=== PATIENT | male | born 1955 | race Caucasian/White ===

== ENCOUNTER 2022-09-04 20:06 | Emergency (ER) | payer OTHER ==
--- OUTSIDE RECORDS SUMMARY | 2022-09-04 20:15 | XMS REPORT | Continuity of Care Document ---
:1955 Author Organization [facility] t Address [address] [place] [address] [place] [id number] Care Team Providers Name Role Phone PCP, PATIENT DOES NOT HAVE A Primary Care Physician Unavaila ble Lab, Lcc Attending Clinician Unavailable Sara SALGADO, Fady Gonzalez Attending Clinician FADY RUIZ Attending Clinician Unavailable Payers Payer Name Policy Type Policy Number Effective Date Expiration Date S ource Problems Condition Condition Condition Status Onset Resolution Last Treating Co mments Source Name Details Category Date Date Treatment Clinician Date No known No known Disease Unive rs active active ity of problems problems [facility] Allergies, Adverse Reactions, Alerts Allergy Allergy Status Severity Reaction(s) Onset Inactive Treating Comm ents Source Name Type Date Date Clinician NO KNOWN Drug Active Univers ALLERGIE Class ity of S [facility] Social History Social Habit Start Date Stop Date Quantity Comments Source History of Passive smoker Flom of tobacco use [facility] Exposure to 2022-05-27 2022-06-06 Not sure [facility]-CoV-2 00:00:00 15:20:00 [facility] (event) [place] Tobacco use and 2022-06-06 2022-06-06 Smokeless tobacco Un iversity of exposure 00:00:00 00:00:00 non-user [facility] Sex Assigned At [birth year] Univers[facility] 00:00:00 00:00:00 [facility] Smoking Status Start Date Stop Date Source Never smoked tobacco [facility] Medications Ordered Filled Start Stop Current Ordering Indication Dosage Frequency Signature Comments Components Source Medication Medication Date Date Medication? Clinician (SIG) Name Name tamsulosin 2021-06 Yes [id number] .4mg Take 1 Univers (FLOMAX) 2 capsule by iti[place] o f 0.4 mg 24 00:[place] capsule 00 the [facility] morning. Branch tamsulosin 2021-06 Yes [id number] .4mg Take 1 Univers (FLOMAX) 2-07 07 capsule by ity o f 0.4 mg 24 00:[place] capsule 00 the [facility] morning. [facility] tamsulosin 2021-06 Yes [id number] .4mg Take 1 Univers (FLOMAX) 2-07 07 capsule by ity o f 0.4 mg 24 00:[place]: [place] capsule 00 the [facility] morning. [facility] tamsulosin 2021-06 Yes [id number] .4mg Take 1 Univers (FLOMAX) 2-07 07 capsule by ity o f 0.4 mg 24 00:[place] capsule 00 the [facility] morning. [facility] tamsulosin 2021-06 Yes [id number] .4mg Take 1 Univers (FLOMAX) 2-07 07 capsule by ity o f 0.4 mg 24 00:[place]: [place] capsule 00 the Medical morning. Branch tamsulosin 2021-06 Yes [id number] .4mg Take 1 Univers (FLOMAX) 2-07 07 capsule by ity o f 0.4 mg 24 00:00: [place] capsule 00 the Medical morning. Branch jan 20222022- Yes [id number] Apply to [facility] betamethaso 08-07 area(s) 2 it y of ne 00:00: 05:59 (two) [place] dipropionat 00 :00 times Medical e 0.05 % daily for Branch cream 30 days. jan 20222022- Yes [id number] Apply to [facility] betamethaso 08-07 area(s) 2 it y of ne 00:00: 05:59 (two) [place] dipropionat 00 :00 times Medical e 0.05 % daily for Branch cream 30 days. jan 20222022- Yes [id number] Apply to [facility] betamethaso 08-07 area(s) 2 it y of ne 00:00: 05:59 (two) [place] dipropionat 00 :00 times Medical e 0.05 % daily for Branch cream 30 days. jan 20222022- Yes [id number] Apply to [facility] betamethaso 08-07 area(s) 2 it y of ne 00:00: 05:59 (two) [place] dipropionat 00 :00 times Medical e 0.05 % daily for Branch cream 30 days. jan 20222022- Yes [id number] Apply to [facility] betamethaso 08-07 area(s) 2 it y of ne 00:00: 05:59 (two) [place] dipropionat 00 :00 times Medical e 0.05 % daily for Branch cream 30 days. jan 20222022- Yes [id number] Apply to [facility] betamethaso 08-07 area(s) 2 it y of ne 00:00: 05:59 (two) [place] dipropionat 00 :00 times Medical e 0.05 % daily for Branch cream 30 days. Vital Signs Vital Name Observation Time Observation Value Comments Source Systolic blood 2022-06-06 21:18:00 132 mm[Hg] Univer sity of pressure [facility] Diastolic blood 2022-06-06 21:18:00 89 mm[Hg] Unive rsity of pressure [facility] Heart rate 2022-06-06 21:18:00 86 /min [facility] acute hospital Body temperature 2022-06-06 21:18:00 36.78 [facility] Body height 2022-06-06 21:18:00 180.3 cm [facility] acute hospital Body weight 2022-06-06 21:18:00 98.521 kg [facility] acute hospital BMI 2022-06-06 21:18:00 30.29 kg/m2 General acute hospital Oxygen saturation in 2022-06-06 21:18:00 96 /min [facility] Arterial blood by [facility] Pulse oximetry Branch Procedures This patient has no known procedures. 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 [id number] [facility] 15:15:00 15:45:00 Visit Fady [facility] [id number] ity of CANCER [id number] [facility] - [id number] [facility] ical [facility] 204 Branch Results This patient has no known results.
[2022-09-04] MEDS ORDERED: ASPIRIN 81 MG CHEWABLE TABLET ONE (20:41)
[2022-09-04 21:07] LABS: Protime INR 1.14
[2022-09-04 21:09] LABS: Absolute Lymphocytes (CBC) 2.1 K/uL (0.7-4.9); Hematocrit 42.9 % (39.6-49.0); Lymphocytes % 30.3 % (15.3-44.8); MCV 95.6 fL (80-100); MPV 7.1 fL (7.6-11.3); RBC Red Blood Cell Count 4.49 M/uL (4.33-5.43)
[2022-09-04 21:21] LABS: Magnesium 2.3 mg/dL (1.6-2.4); Potassium 3.9 mEq/L (3.5-5.1); Troponin High Sensitivity 3.5 pg/mL (<58.9)
--- NOTE | 2022-09-04 21:23 | RAD REPORT ---
EXAM DESCRIPTION: Jennifer Single View09/04/2022 9:08 pm CLINICAL HISTORY: left arm pain COMPARISON: No comparisons TECHNIQUE: Portable AP view of the chest. FINDINGS: The lungs are clear.Left basilar atelectatic changes. No pneumothorax or effusion. The car diomediastinal contours are unremarkable. IMPRESSION: No acute cardiopulmonary process.
[2022-09-04] MEDS ORDERED: KETOROLAC 30 MG/ML INJ ONE (22:01)
[2022-09-05 00:57] LABS: Potassium 3.7 mEq/L (3.5-5.1)
--- NOTE | 2022-09-05 08:37 | ER ---
Nurse's Notes [facility] Name: Christophe Matias Age: 66 yrs Sex: Male : 1955 Arrival Date: 09/04/2022 Time: 20:08 Bed 4 Private MD: Diagnosis: Chest pain, unspecified;Shortness of breath Presentation: 09/04 20:15 Chief complaint: Patient states: SOB, back pain and left arm pain starting about 1 week lg3 ago but has gotten worse today. Coronavirus screen: Client denies travel out of the [place] in the last 14 days. At this time, the client does not indicate any symptoms associated with coronavirus-19. Ebola Screen: No symptoms or risks identified at this time. Initial Sepsis Screen: Does the patient meet any 2 criteria? No. Patient's initial sepsis screen is negative. Does the patient have a suspected source of infection? No. Patient's initial sepsis screen is negative. Risk Assessment: Do you want to hurt yourself or someone else? Patient reports no desire to harm self or others. Onset of symptoms is unknown. 20:15 Method Of Arrival: Ambulatory lg3 20:15 Acuity: GLORIA 3 lg3 Triage Assessment: 20:20 General: Appears in no apparent distress. comfortable, Behavior is calm, cooperative. lg3 Pain: Complains of pain in chest Pain radiates to left arm Pain currently is 2 out of 10 on a pain scale. EENT: No deficits noted. No signs and/or symptoms were reported regarding the EENT system. Neuro: No deficits noted. Funez Agitation-Sedation Scale (RASS): 0 - Alert and Calm Level of Consciousness is awake, alert, obeys commands, Oriented to person, place, time, situation. Cardiovascular: Reports chest pain, Capillary refill < 3 seconds Clubbing of nail beds is absent Patient's skin is warm and dry. Respiratory: No deficits noted. Reports shortness of breath. GI: No deficits noted. No signs and/or symptoms were reported involving the gastrointestinal system. : No deficits noted. No signs and/or symptoms were reported regarding the genitourinary system. Derm: No deficits noted. No signs and/or symptoms reported regarding the dermatologic system. Skin is intact, is healthy with good turgor, Skin is dry, Skin is normal, Skin temperature is warm. Musculoskeletal: No deficits noted. No signs and/or symptoms reported regarding the musculoskeletal system. Circulation, motion, and sensation intact. Range of motion: intact in all extremities. Historical: - Allergies: 20:20 No Known Allergies; lg3 - Home Meds: 20:20 None [Active]; lg3 - PMHx: 20:20 enlarged prostate; lg3 - PSHx: 20:20 None; lg3 - Immunization history:: Adult Immunizations up to date, Client reports receiving the 2nd dose of the Covid vaccine. - Social history:: Smoking status: Patient denies any tobacco usage or history of. Patient uses alcohol, occasionally. Screenin:06 Abuse screen: Denies threats or abuse. Denies injuries from another. Nutritional ha1 screening: No deficits noted. Tuberculosis screening: No symptoms or risk factors identified. Assessment: 20:27 General: Appears comfortable, Behavior is calm, cooperative. Pain: Complains of pain in ha1 left arm and chest. Neuro: Level of Consciousness is awake, alert, obeys commands, Oriented to person, place, time, situation. Cardiovascular: Capillary refill < 3 seconds Patient's skin is warm and dry. Rhythm is sinus rhythm. Respiratory: Airway is patent Respiratory effort is even, unlabored, Respiratory pattern is regular, symmetrical. Respiratory: Reports shortness of breath at rest. GI: No signs and/or symptoms were reported involving the gastrointestinal system. Abdomen is non-distended, obese. : No signs and/or symptoms were reported regarding the genitourinary system. 21:30 Reassessment: Patient and/or family updated on plan of care and expected duration. Pain ha1 level reassessed. Patient is alert, oriented x 3, equal unlabored respirations, skin warm/dry/pink. Patient states symptoms have improved. 22:59 Reassessment: Patient appears in no apparent distress at this time. Patient and/or jb4 family updated on plan of care and expected duration. Pain level reassessed. Patient is alert, oriented x 3, equal unlabored respirations, skin warm/dry/pink. 23:30 Reassessment: Patient and/or family updated on plan of care and expected duration. Pain ha1 level reassessed. Patient is alert, oriented x 3, equal unlabored respirations, skin warm/dry/pink. 09/05 00:30 Reassessment: Patient and/or family updated on plan of care and expected duration. Pain ha1 level reassessed. Patient is alert, oriented x 3, equal unlabored respirations, skin warm/dry/pink. Patient denies pain at this time. Vital Signs: 09/04 20:15 BP 141 / 89; Pulse 71; Resp 17 S; Temp 98.9(O); Pulse Ox 100% on R/A; Weight 96.16 kg lg3 (R); Height 5 ft. 11 in. (R); Pain 2/10; 20:56 BP 139 / 93 LA; Pulse 63; Resp 18 S; Pulse Ox 99% on R/A; ha1 21:45 BP 137 / 96; Pulse 55; Resp 18 S; Pulse Ox 100% ; ha1 22:00 BP 144 / 95; Pulse 57; Resp 18 S; Pulse Ox 100% on R/A; ha1 22:59 BP 125 / 93; Pulse 56; Resp 14; Pulse Ox 100% on R/A; jb4 23:30 BP 140 / 88; Pulse 55; Resp 16 S; Pulse Ox 100% on R/A; ha1 09/05 00:30 BP 144 / 85; Pulse 55; Resp 18 S; Pulse Ox 100% ; ha1 09/04 20:15 Body Mass Index 29.57 (96.16 kg, 180.34 cm) lg3 09/04 20:15 Pain Scale: Adult lg3 ED Course: 09/04 20:08 Patient arrived in ED. mr 20:12 Devon Culp PA is PHCP. cp 20:12 Camacho Jasmine MD is Attending Physician. cp 20:17 Triage completed. lg3 20:20 Arm band placed on right wrist. lg3 20:27 Patient has correct armband on for positive identification. Placed in gown. Bed in low ha1 position. Call light in reach. Side rails up X 1. 21:10 XRAY Chest (1 view) In Process Unspecified. EDMS 21:15 Inserted saline lock: 20 gauge in right forearm, using aseptic technique. Blood ha1 collected. 21:52 Crissy Quinonez, DELROY is Primary Nurse. ha1 09/05 00:24 IV discontinued, intact, bleeding controlled, No redness/swelling at site. Pressure ha1 dressing applied. 00:50 Francisco Mansfield MD is Referral Physician. cp 00:57 No provider procedures requiring assistance completed. ha1 Administered Medications: 09/04 20:40 Drug: Aspirin PO Chewable Tablet 324 mg Route: PO; ha1 21:00 Follow up: Response: No adverse reaction ha1 22:03 Not Given (Patient Refused): Ketorolac IVP 15 mg IVP once ha1 Medication: 09/05 00:58 VIS not applicable for this client. ha1 Outcome: 00:51 Discharge ordered by MD. cp 00:57 Discharged to home ambulatory. ha1 00:57 Condition: stable 00:57 Discharge instructions given to patient, Instructed on discharge instructions, follow up and referral plans. medication usage, Demonstrated understanding of instructions, follow-up care, medications, Prescriptions given X 1. 01:02 Patient left the ED. ha1 Signatures: Dispatcher [employer] DARIANAWV Kelli Borges Corey, PA PA cp Ace Canela RN RN jb4 Chrystal Carreon RN RN lg3 Crissy Quinonez RN RN ha1
--- NOTE | 2022-09-05 08:37 | EDPHYS ---
Physician Documentation [facility] Name: Christophe Matias Age: 66 yrs Sex: Male : 1955 Arrival Date: 09/04/2022 Time: 20:08 Bed 4 Private MD: ED Physician Camacho Jasmine HPI: 09/04 20:25 This 66 yrs old Male presents to ER via Ambulatory with complaints of Arm Pain. cp 20:25 The patient or guardian complains of pain, that is acute. The complaints affect the cp medial anterior aspect of left shoulder. 20:25 Onset: The symptoms/episode began/occurred 1 week(s) ago, and became worse today. cp 20:25 The patient or guardian reports chest pain that is located primarily in the anterior cp chest wall, left. Historical: - Allergies: 20:20 No Known Allergies; lg3 - Home Meds: 20:20 None [Active]; lg3 - PMHx: 20:20 enlarged prostate; lg3 - PSHx: 20:20 None; lg3 - Immunization history:: Adult Immunizations up to date, Client reports receiving the 2nd dose of the Covid vaccine. - Social history:: Smoking status: Patient denies any tobacco usage or history of. Patient uses alcohol, occasionally. ROS: 20:30 Constitutional: Negative for body aches, chills, fever, poor PO intake. cp 20:30 Eyes: Negative for injury, pain, redness, and discharge. cp 20:30 Cardiovascular: Positive for chest pain. 20:30 Respiratory: Negative for cough, shortness of breath, wheezing. 20:30 Abdomen/GI: Negative for abdominal pain, nausea, vomiting, and diarrhea. 20:30 MS/extremity: Positive for pain, of the left anterior shoulder, Negative for injury or acute deformity, decreased range of motion, paresthesias. 20:30 All other systems are negative. Exam: 20:35 Constitutional: The patient appears in no acute distress, alert, awake, cp non-diaphoretic, non-toxic, well developed, well nourished. 20:35 Head/Face: Normocephalic, atraumatic. cp 20:35 Eyes: Periorbital structures: appear normal, Conjunctiva: normal, no exudate, no cp injection, Sclera: no appreciated abnormality, Lids and lashes: appear normal, bilaterally. 20:35 ENT: External ear(s): are unremarkable, Nose: is normal, Mouth: Lips: moist, Oral mucosa: moist. 20:35 Chest/axilla: Inspection: normal, Palpation: is normal, no crepitus, no tenderness. 20:35 Cardiovascular: Rate: normal, Rhythm: regular. 20:35 Respiratory: the patient does not display signs of respiratory distress, Respirations: cp normal, no use of accessory muscles, no retractions. 20:35 Abdomen/GI: Inspection: abdomen appears normal, Palpation: abdomen is soft and non-tender, in all quadrants. 21:15 ECG was reviewed by the Attending Physician. cp 09/05 00:08 ECG was reviewed by the Attending Physician. cp Vital Signs: 09/04 20:15 BP 141 / 89; Pulse 71; Resp 17 S; Temp 98.9(O); Pulse Ox 100% on R/A; Weight 96.16 kg lg3 (R); Height 5 ft. 11 in. (R); Pain 2/10; 20:56 BP 139 / 93 LA; Pulse 63; Resp 18 S; Pulse Ox 99% on R/A; ha1 21:45 BP 137 / 96; Pulse 55; Resp 18 S; Pulse Ox 100% ; ha1 22:00 BP 144 / 95; Pulse 57; Resp 18 S; Pulse Ox 100% on R/A; ha1 22:59 BP 125 / 93; Pulse 56; Resp 14; Pulse Ox 100% on R/A; jb4 23:30 BP 140 / 88; Pulse 55; Resp 16 S; Pulse Ox 100% on R/A; ha1 09/05 00:30 BP 144 / 85; Pulse 55; Resp 18 S; Pulse Ox 100% ; ha1 09/04 20:15 Body Mass Index 29.57 (96.16 kg, 180.34 cm) lg3 09/04 20:15 Pain Scale: Adult lg3 MDM: 09/04 20:41 Patient medically screened. 09/04 20:21 Order name: Basic Metabolic Panel; Complete Time: 21:22 cp 09/04 21:22 Interpretation: Normal except: CL 113; BUN 26; GFR 61. cp 09/04 20:21 Order name: CBC with Diff; Complete Time: : cp 09/04 21:22 Interpretation: Normal except: MPV 7.1. cp 09/04 20:21 Order name: D-Dimer; Complete Time: :22 cp 09/04 20:21 Order name: Magnesium; Complete Time: :22 cp 09/04 20:21 Order name: NT PRO-BNP; Complete Time: :22 cp 09/04 20:21 Order name: PT-INR; Complete Time: : cp 09/04 20:21 Order name: Troponin HS; Complete Time: : cp 09/04 21:22 Interpretation: Within normal limits: Troponin HS 3.5. cp 09/04 20:21 Order name: XRAY Chest (1 view) cp 09/04 20:21 Order name: EKG; Complete Time: : cp 09/04 20:21 Order name: Cardiac monitoring; Complete Time: 20:56 cp 09/04 20:21 Order name: EKG - Nurse/Tech; Complete Time: 21:52 cp 09/04 20:21 Order name: IV Saline Lock; Complete Time: 20:56 cp 09/04 20:21 Order name: Labs collected and sent; Complete Time: 20:56 cp 09/04 20:21 Order name: O2 Per Protocol; Complete Time: 20:56 cp 09/04 20:21 Order name: O2 Sat Monitoring; Complete Time: 20:56 cp 09/04 20:21 Order name: Blood Pressure Recheck: bilateral upper extremity; Complete Time: 21:52 cp 09/04 22:59 Order name: Labs - recollect needed: redraw troponin 2330; Complete Time: 23:57 cp 09/04 22:59 Order name: EKG - Nurse/Tech: repeat 2330; Complete Time: 00:07 cp EC:15 Rate is 60 beats/min. Rhythm is regular. WV interval is normal. QRS interval is normal. cp QT interval is normal. T waves are Inverted in leads III, aVR. Interpreted by me. Reviewed by me. 09/05 00:08 Rate is 50 beats/min. Rhythm is regular. WV interval is normal. QRS interval is normal. cp QT interval is normal. T waves are Inverted in lead aVR. Interpreted by me. Reviewed by me. Administered Medications: 09/04 20:40 Drug: Aspirin PO Chewable Tablet 324 mg Route: PO; ha1 21:00 Follow up: Response: No adverse reaction ha1 22:03 Not Given (Patient Refused): Ketorolac IVP 15 mg IVP once ha1 Disposition: 09/05 01:54 Co-signature as Attending Physician, Camacho Jasmine MD I reviewed the patient's care rn provided by the Advanced Practice Provider and agree with the diagnosis and treatment plan. Disposition Summary: 09/05/22 00:51 Discharge Ordered Location: Home cp Problem: new cp Symptoms: have improved cp Condition: Stable cp Diagnosis - Chest pain, unspecified cp - Shortness of breath cp Followup: cp - With: Francisco Mansfield MD - When: 2 - 3 days - Reason: Recheck today's complaints Discharge Instructions: - Discharge Summary Sheet cp - Nonspecific Chest Pain, Adult cp - Shortness of Breath, Adult cp - Aspirin and Your Heart cp Forms: - Medication Reconciliation Form cp - Thank You Letter cp - Antibiotic Education cp - Prescription Opioid Use cp Prescriptions: - albuterol sulfate 90 mcg/actuation Inhalation HFA Aerosol Inhaler - inhale 1 puff by INHALATION route every 4 to 6 hours as needed for shortness of cp breath or wheezing; 1 unit; Refills: 0, Product Selection Permitted Signatures: Dispatcher [employer] EDCamacho Hall MD MD rn Page, Corey, PA PA cp Chrystal Carreon RN RN 3 Crissy Quinonez RN RN ha1 Corrections: (The following items were deleted from the chart) 09/04 22:15 22:12 This 66 yrs old Male presents to ER via Ambulatory with complaints of Arm Pain. cpcp
[2022-09-05 11:12] VITALS: TEMP 98.9
[2022-09-05 11:14] VITALS: O2SAT 100
[2022-09-05 11:20] VITALS: BP 144/85
--- NOTE | 2022-09-05 12:14 | EKG ---
Test Date: 2022-09-05 Test Time: 00:00:44 Athletic Director: STEPHY MEASUREMENT RESULTS: Intervals: Rate: 50 VT: 160 QRSD: 98 QT: 444 QTc: 404 [place]: P: 31 VT: 160 QRS: -5 T: 10 INTERPRETIVE STATEMENTS: Sinus bradycardia Otherwise normal ECG Compared to ECG 09/04/2022 21:09:21 Sinus rhythm no longer present Electronically Signed On 09-05-22 12:12:42 CDT by Francisco Mansfield
--- NOTE | 2022-09-05 12:14 | EKG ---
Test Date: 2022-09-04 Test Time: 21:09:21 [place]: STEPHY MEASUREMENT RESULTS: Intervals: Rate: 60 WV: 152 QRSD: 88 QT: 422 QTc: 422 [place]: P: 49 WV: 152 QRS: -11 T: 15 INTERPRETIVE STATEMENTS: Normal sinus rhythm Normal ECG No previous ECG available for comparison Electronically Signed On 09-05-22 12:12:55 CDT by Francisco Mansfield
== END 2022-09-05 01:02 | disposition home or self-care (01) ==
LOC: ER 20:06
DX: R07.9 Chest pain, unspecified (principal); R06.02 Shortness of breath
CPT/HCPCS: 36415; 71045; 80048; 83735; 83880; 84484; 85025; 85379; 85610; 93005

== ENCOUNTER 2022-10-26 15:33 | Emergency (ER) | payer OTHER ==
[2022-10-26] MEDS ORDERED: HYDROCODONE/APAP 7.5/325 MG TAB ONE (16:00)
[2022-10-26] MEDS ORDERED: TETANUS & DIPHTHERIA TOX,ADULT 0.5 ML VIAL ONE (16:01)
[2022-10-26] MEDS ORDERED: LIDOCAINE 1% MPF 5 ML VIAL ONE (16:19)
--- OUTSIDE RECORDS SUMMARY | 2022-10-26 16:29 | XMS REPORT | Continuity of Care Document ---
:1955 Author Organization [facility] t Address [address] [place] [address] [address] [place] [address] Care Team Providers Name Role Phone PCP, PATIENT DOES NOT HAVE A Primary Care Physician Unavaila ble Lab, Lcc Attending Clinician Unavailable Fady Ruiz MD Attending Clinician FADY RUIZ Attending Clinician Unavailable Payers Payer Name Policy Type Policy Number Effective Date Expiration Date S ource Problems Condition Condition Condition Status Onset Resolution Last Treating Co mments Source Name Details Category Date Date Treatment Clinician Date No known No known Disease Unive rs active active ity of problems problems [facility] Allergies, Adverse Reactions, Alerts Allergy Allergy Status Severity Reaction(s) Onset Inactive Treating Comm ents Source Name Type Date Date Clinician NO KNOWN Drug Active Univers ALLERGIE Class ity of S [facility] Social History Social Habit Start Date Stop Date Quantity Comments Source History of Passive smoker University of tobacco use [facility] Exposure to 2022-05-27 2022-06-06 Not sure [facility]-CoV-2 00:00:00 15:20:00 [facility] (event) [place] Tobacco use and 2022-06-06 2022-06-06 Smokeless tobacco Un iversity of exposure 00:00:00 00:00:00 non-user [facility] Sex Ass[birth year] At [birth year] Universit y of 00:00:00 00:00:00 [facility] Smoking Status Start Date Stop Date Source Never smoked tobacco [facility] Medications Ordered Filled Start Stop Current Ordering Indication Dosage Frequency Signature Comments Components Source Medication Medication Date Date Medication? Clinician (SIG) Name Name tamsulosin 2021-06 Yes [id number] .4mg Take 1 Univers (FLOMAX) 2 capsule by ity o f 0.4 mg 24 [place] capsule 00 the [facility] morning. Branch tamsulosin 2021-06 Yes [id number] .4mg Take 1 Univers (FLOMAX) 2-22 capsule by ity o f 0.4 mg 24 00:[place] capsule 00 the [facility] morning. [facility] tamsulosin 2021-06 Yes [id number] .4mg Take 1 Univers (FLOMAX) 2-22 capsule by ity o f 0.4 mg 24 00:[place] capsule 00 the [facility] morning. [facility] tamsulosin 2021-06 Yes [id number] .4mg Take 1 Univers (FLOMAX) 2-22 capsule by ity o f 0.4 mg 24 00:[place] capsule 00 the [facility] morning. [facility] tamsulosin 2021-06 Yes [id number] .4mg Take 1 Univers (FLOMAX) 2-07 07 capsule by ity o f 0.4 mg 24 00:[place] capsule 00 the [facility] morning. [facility] tamsulosin 2021-06 Yes [id number] .4mg Take 1 Univers (FLOMAX) 2-22 capsule by ity o f 0.4 mg 24 00:[place] capsule 00 the [facility] morning. [facility] jan 20222022- No [id number] [facility] area(s) 2 it y of ne 00:00: 05:59 (two) [place] dipropionat 00 :00 times Medical e 0.05 % daily for Branch cream 30 days. jan 20222022- No [id number] Apply to [facility] betamethas 08-07 area(s) 2 it y of ne 00:00: 05:59 (two) [place] dipropionat 00 :00 times Medical e 0.05 % daily for Branch cream 30 days. jan 20222022- No [id number] Apply to [facility] betamethas 08-07 area(s) 2 it y of ne 00:00: 05:59 (two) [place] dipropionat 00 :00 times Medical e 0.05 % daily for Branch cream 30 days. jan 20222022- No [id number] [facility] area(s) 2 it y of ne 00:00: 05:59 (two) [place] dipropionat 00 :00 times Medical e 0.05 % daily for Branch cream 30 days. jan 20222022- No [id number] Apply to [facility] betamethaso 08-07 area(s) 2 it y of ne 00:00: 05:59 (two) [place] dipropionat 00 :00 times Medical e 0.05 % daily for Branch cream 30 days. jan 20222022- No [id number] Apply to [facility] betamethaso 08-07 area(s) 2 it y of ne 00:00: 05:59 (two) [place] dipropionat 00 :00 times Medical e 0.05 % daily for Branch cream 30 days. Vital Signs Vital Name Observation Time Observation Value Comments Source Systolic blood 2022-06-06 21:18:00 132 mm[facility]Hg[facility] Diastolic blood 2022-06-06 21:18:00 89 mm[Hg] [facility] rsity of [facility] Heart rate 2022-06-06 21:18:00 86 /min [facility] Body temperature 2022-06-06 21:18:00 36.78 [facility] Body height 2022-06-06 21:18:00 180.3 cm [facility] Body weight 2022-06-06 21:18:00 98.521 kg [facility] BMI 2022-06-06 21:18:00 30.29 kg/m2 [facility] Oxygen saturation in 2022-06-06 21:18:00 96 /min [facility] Arterial blood by [facility] Pulse oximetry Branch Procedures This patient has no known procedures. Encounters Start End Encounter Admission Attending Care Care Encounter Source Date/Time Date/Time Type Type Clinicians Facility Department ID 2022-06-06 2022-06-06 [facility], [facility] [id number] Univers 15:45:00 16:00:00 Visit Fady Ruiz SPECIALTY [id number] ity of CARE [id number] [facility] AT [id number] Mi queenie LYMAN [address] [place] 2022-06-06 2022-06-06 Outpatient R [facility] [id number] Univers 15:45:00 15:45:00 FADY barrera [facility] 2022-06-06 2022-06-06 Office Sara [facility] [id number] Univers 15:15:00 15:45:00 Visit Fady [facility] [id number] ity of CANCER [id number] [facility] - [id number] [facility] Branch Results This patient has no known results.
--- NOTE | 2022-10-26 16:44 | RAD REPORT ---
EXAM DESCRIPTION: RAD - Hand Left 3 View - 10/26/2022 4:27 pm CLINICAL HISTORY: PAIN COMPARISON: <Comparisons> FINDINGS/IMPRESSION: No acute fracture. Possible subluxation at the fifth MCP which may be positiona l and is of doubtful acute clinical significance given the mechanism of injury. Interphalangeal joint space narrowing that is mild. No radiopaque foreign body.
--- NOTE | 2022-10-26 17:28 | EDPHYS ---
Physician Documentation [facility] Name: Christophe Matias Age: 67 yrs Sex: Male : 1955 Arrival Date: 10/26/2022 Time: 15:33 Bed 12 Private MD: ED Physician Sky Tony HPI: 10/26 18:45 This 67 yrs old Male presents to ER via Ambulatory with complaints of Hand Injury. kb 18:45 The patient has a laceration related to: drilling a hole in a piece of plastic and it kb went faster than he thought it would and into his hand occurred at home, and there are no complicating factors. The injury was accidental. The laceration(s) is(are) located on the palm of left hand. Onset: The symptoms/episode began/occurred just prior to arrival. Associated signs and symptoms: The patient has no apparent associated signs or symptoms. The patient has not experienced similar symptoms in the past. The patient has not recently seen a physician. Historical: - Allergies: 15:45 No Known Allergies; aa5 - PMHx: 15:45 enlarged prostate; Hypercholesterolemia; aa5 - Immunization history:: Adult Immunizations unknown. - Social history:: Smoking status: Patient denies any tobacco usage or history of. ROS: 18:44 Constitutional: Negative for fever, chills, and weight loss. kb 18:44 Skin: Positive for laceration(s), of the palm of left hand. 18:44 All other systems are negative. Exam: 18:44 Constitutional: This is a well developed, well nourished patient who is awake, alert, kb and in no acute distress. Head/Face: Normocephalic, atraumatic. ENT: Moist Mucous membranes Cardiovascular: Regular rate and rhythm with a normal S1 and S2. No gallops, murmurs, or rubs. No pulse deficits. Respiratory: Respirations even and unlabored. No increased work of breathing. Talking in full sentences MS/ Extremity: Pulses equal, no cyanosis. Neurovascular intact. Full, normal range of motion. Neuro: Awake and alert, GCS 15, oriented to person, place, time, and situation. Moves all extremities. Normal gait. 18:44 Skin: injury, laceration(s), the wound is approximately 3 cm(s), of the palm of left hand, that can be described as clean, no foreign body, irregular. Vital Signs: 15:46 BP 124 / 81; Pulse 69; Resp 18 S; Temp 98.1(TE); Pulse Ox 99% on R/A; Weight 92.99 kg aa5 (R); Height 5 ft. 11 in. (R); 15:46 Body Mass Index 28.59 (92.99 kg, 180.34 cm) aa5 Laceration: 17:16 Wound Repair of 3cm ( 1.2in ) subcutaneous laceration to palm of left hand. Irregularly kb shaped.. Skin/tissue flap noted.. Distal neuro/vascular/tendon intact. Anesthesia: Wound infiltrated with 4 mls of 1% lidocaine. Wound prep: Extensive cleansing with hibiclenz by me, Wound irrigation with saline by me, Wound margin revised minimally. Skin closed with 5 5-0 Prolene using simple sutures and sterile technique. Patient tolerated well. MDM: 15:35 Patient medically screened. kb 18:44 Differential diagnosis: open fracture. Data reviewed: vital signs, nurses notes. kb 18:44 Differential diagnosis: superficial laceration, tendon injury, vascular injury. kb Counseling: I had a detailed discussion with the patient and/or guardian regarding: the historical points, exam findings, and any diagnostic results supporting the discharge/admit diagnosis, radiology results, the need for outpatient follow up, a family practitioner, to return to the emergency department if symptoms worsen or persist or if there are any questions or concerns that arise at home. 10/26 15:40 Order name: Hand Left 3 View XRAY; Complete Time: 16:45 kb 10/26 16:04 Order name: Dressing - Wound; Complete Time: 16:17 kb 10/26 16:04 Order name: Gloves, Sterile; Complete Time: 16:17 kb 10/26 16:04 Order name: Prolene, Sutures; Complete Time: 16:17 kb 10/26 16:04 Order name: Setup Suture Tray; Complete Time: 16:17 kb Administered Medications: 15:57 Drug: Tetanus-Diphtheria Toxoid IM Adult 0.5 ml {Supervisor Long Goods: [employer]. Exp: hb 10/20/2023. Lot #: [id number]. } Route: IM; Site: left deltoid; Disposition Summary: 10/26/22 17:28 Discharge Ordered Location: Home kb Condition: Stable kb Diagnosis - Laceration without foreign body of left hand kb Followup: kb - With: Emergency Department - When: As needed - Reason: Worsening of condition Followup: kb - With: Private Physician - When: 2 - 3 days - Reason: Recheck today's complaints, Continuance of care, Re-evaluation by your physician Discharge Instructions: - Discharge Summary Sheet kb - Laceration Care, Adult, [id number] kb Forms: - Medication Reconciliation Form kb - Thank You Letter kb - Antibiotic Education kb - Prescription Opioid Use kb Prescriptions: - Cephalexin 500 mg Oral Capsule - take 1 capsule by ORAL route every 8 hours for 10 days; 30 capsule; Refills: 0, kb Product Selection Permitted Signatures: Dispatcher [employer] EDMickie Bautista, EXTRUSION DIE REPAIR MANAGER-C EXTRUSION DIE REPAIR MANAGER-Ynes Amaya, RN RN aa5 Funmilayo Son, RN RN hb
--- NOTE | 2022-10-26 17:28 | ER ---
Nurse's Notes [facility] Name: Christophe Matias Age: 67 yrs Sex: Male : 1955 Arrival Date: 10/26/2022 Time: 15:33 Bed 12 Private MD: Diagnosis: Laceration without foreign body of left hand Presentation: 10/26 15:46 Chief complaint: Patient states: "I was drilling a plastic thing and it got my hand". aa5 Puncture wound noted to left palm, no active bleeding noted. Coronavirus screen: At this time, the client does not indicate any symptoms associated with coronavirus-19. Ebola Screen: Patient denies travel to an Ebola-affected area in the 21 days before illness onset. Initial Sepsis Screen: Does the patient meet any 2 criteria? No. Patient's initial sepsis screen is negative. Does the patient have a suspected source of infection? No. Patient's initial sepsis screen is negative. Risk Assessment: Do you want to hurt yourself or someone else? Patient reports no desire to harm self or others. Onset of symptoms was October 26, 2022. 15:46 Method Of Arrival: Ambulatory aa5 15:46 Acuity: GLORIA 4 aa5 Historical: - Allergies: 15:45 No Known Allergies; aa5 - PMHx: 15:45 enlarged prostate; Hypercholesterolemia; aa5 - Immunization history:: Adult Immunizations unknown. - Social history:: Smoking status: Patient denies any tobacco usage or history of. Screenin:02 [facility] ED Fall Risk Assessment (Adult) Score/Fall Risk Level 0 - 2 = Low Risk hb Oriented to surroundings, Maintained a safe environment. Abuse screen: Denies threats or abuse. Denies injuries from another. Nutritional screening: No deficits noted. Tuberculosis screening: No symptoms or risk factors identified. Assessment: 15:58 General: Appears in no apparent distress. Behavior is calm, cooperative. Pain: Denies hb pain. Neuro: Level of Consciousness is awake, alert, obeys commands, Oriented to person, place, time, situation. Cardiovascular: Patient's skin is warm and dry. Respiratory: Respiratory effort is even, unlabored, Respiratory pattern is regular, symmetrical. 18:00 Reassessment: Patient appears in no apparent distress at this time. Patient and/or hb family updated on plan of care and expected duration. Pain level reassessed. Patient is alert, oriented x 3, equal unlabored respirations, skin warm/dry/pink. Vital Signs: 15:46 BP 124 / 81; Pulse 69; Resp 18 S; Temp 98.1(TE); Pulse Ox 99% on R/A; Weight 92.99 kg aa5 (R); Height 5 ft. 11 in. (R); 15:46 Body Mass Index 28.59 (92.99 kg, 180.34 cm) aa5 ED Course: 15:34 Patient arrived in ED. ts1 15:35 Mickie Sheldon FNP-C is PHCP. kb 15:35 Sky Tony MD is Attending Physician. kb 15:45 Arm band placed on. aa5 15:47 Triage completed. aa5 16:02 Patient has correct armband on for positive identification. hb 16:02 No provider procedures requiring assistance completed. Patient did not have IV access hb during this emergency room visit. 16:29 Hand Left 3 View XRAY In Process Unspecified. EDMS Administered Medications: 15:57 Drug: Tetanus-Diphtheria Toxoid IM Adult 0.5 ml {Customer Field Representative: [employer]. Exp: hb 10/20/2023. Lot #: [id number]. } Route: IM; Site: left deltoid; Medication: 16:02 Vaccine Information Statement (VIS) provided today. Questions and/or concerns hb addressed. VIS edition date: October 26, 2022. Outcome: 17:28 Discharge ordered by MD. kb 18:17 Discharged to home ambulatory. hb 18:17 Condition: stable 18:17 Discharge instructions given to patient, Instructed on discharge instructions, follow up and referral plans. medication usage, wound care, Demonstrated understanding of instructions, follow-up care, medications, wound care, Prescriptions given X 1. 18:17 Patient left the ED. hb Signatures: Dispatcher [employer] EDMS Mickie Sheldon FNP-C FNP-Ckb Calderon, Audri, RN RN aa5 Funmilayo Son RN RN hb Rachel Walsh PAS PAS ts1 Corrections: (The following items were deleted from the chart) 15:58 15:58 Hydrocodone-Acetaminophen PO (7.5 mg-325 mg) 1 tabs PO hb hb
[2022-10-26 18:30] VITALS: BP 124/81; TEMP 98.1; O2SAT 99
== END 2022-10-26 18:17 | disposition home or self-care (01) ==
LOC: ER 15:33
PROC: 0HQGXZZ Repair Left Hand Skin, External Approach (ICD-10-PCS; principal; 2022-10-26)
DX: S61.412A Laceration without foreign body of left hand, initial encounter (principal); Z23 Encounter for immunization
CPT/HCPCS: 73130; 90471; 90714; 99284; 12002; J2001